=== PATIENT | female | born 1945 | race Caucasian/White ===

== ENCOUNTER 2018-01-19 09:46 | Emergency (ER) | payer MEDICARE, OTHER ==
[~2018-01-19] VITALS: Ht 170.2 cm; Wt 78.0 kg
[2018-01-19 09:49] VITALS: BP 130/68
[2018-01-19 11:02] LABS: CULTURE INDICATED? YES; MICROSCOPIC INDICATED
== END 2018-01-19 11:46 | disposition home or self-care (01) ==
LOC: ED 11:40
DX: N30.00 Acute cystitis without hematuria (principal)
CPT/HCPCS: 81001; 87077; 87086; 87186; 99284